=== PATIENT | female | born 1960 | race Two or more races ===

== ENCOUNTER 2024-07-12 06:40 | Day surgery (SDC) | payer OTHER ==
[~2024-07-12 06:40] MED LIST: ANASTROZOLE1 MG PO
[2024-07-12] MEDS ORDERED: CLINDAMYCIN PHOSPHATE 150 MG/ML (900mg) ONE (08:13)
[2024-07-12] MEDS ORDERED: POVIDONE-IODINE SCRUB 118 ML BOTT TOP ONE (08:15)
[2024-07-12] MEDS ORDERED: POVIDONE-IODINE 118 ML BOTT TOP ONE ×2 (08:15→10:23)
[2024-07-12] MEDS ORDERED: CEFAZOLIN SODIUM 1,000 MG VIAL ONE (08:15)
[2024-07-12] MEDS ORDERED: BUPIVACAINE HCL/MPF 0.5% 30ML VIAL ONE (09:02)
[2024-07-12] MEDS ORDERED: LIDOCAINE HCL 1%/EPINEPHRINE 20ML VIAL IJ ONE (09:02)
[2024-07-12] MEDS ORDERED: MORPHINE SULFATE 4 MG/ML VIAL IV ONE ×2 (12:45→13:10)
== END 2024-07-12 14:53 | disposition home or self-care (01) ==
LOC: CIR.AMB 06:40
PROVIDERS: ATTEND Surgery
DX: C50.812 Malignant neoplasm of overlapping sites of left female breast (principal); R59.0 Localized enlarged lymph nodes; N60.81 Other benign mammary dysplasias of right breast; D48.61 Neoplasm of uncertain behavior of right breast